=== PATIENT | female | born 1975 ===

== ENCOUNTER 2017-01-27 10:27 | Inpatient (IN) | payer OTHER ==
[2017-01-27] MEDS ORDERED: TUBERSOL ID ONE (10:53)
[2017-01-27] MEDS ORDERED: NICODERM PATCH TD SCH (11:00)
[2017-01-27 11:11] LABS: URINE SOURCE VOIDED
[2017-01-27 11:20] LABS: UR AMPHETAMINES QUAL NONE DETECTED (NONE DETECT); UR BARBITUATES QUAL NONE DETECTED (NONE DETECT); UR BENZODIAZEPIN QUAL PRESUMPTIVE POSITIVE (NONE DETECT); UR CANNABINOIDS QUAL NONE DETECTED (NONE DETECT); UR COCAINE QUAL PRESUMPTIVE POSITIVE (NONE DETECT); UR MDMA QUAL NONE DETECTED (NONE DETECT); UR METHADONE QUAL NONE DETECTED (NONE DETECT); UR METHAMPHETAMINE QUAL NONE DETECTED (NONE DETECT); UR OPIATES QUAL NONE DETECTED (NONE DETECT); UR OXYCODONE QUAL PRESUMPTIVE POSITIVE (NONE DETECT); UR PCP QUAL NONE DETECTED (NONE DETECT); UR TCA QUAL NONE DETECTED (NONE DETECT)
[2017-01-27 11:51] LABS: BILIRUBIN URINE NEGATIVE (NEGATIVE); BLOOD URINE 1+ (NEGATIVE); CLARITY CLEAR (CLEAR); COLOR YELLOW; GLUCOSE URINE NEGATIVE (NEGATIVE); LEUKOCYTES URINE 1+ (NEGATIVE); NITRITE URINE NEGATIVE (NEGATIVE); PH URINE 6.5; PROTEIN URINE TRACE mg/dL (NEGATIVE); UROBILINOGEN URINE NORMAL
[2017-01-27 11:54] LABS: URINE CULTURE PL NEEDED? YES; URINE EPITHELIAL CELLS >10 /HPF (<10); URINE RBC <10 /HPF (<10)
[2017-01-27 12:03] LABS: MANUAL DIFF NEEDED? NO
[2017-01-27 12:04] LABS: BASO% 0.7 % (0.0-0.8); EOS# 0.07 X1000 (0.0-0.7); EOS% 1.2 % (0.0-10.0); HEMATOCRIT 41.2 % (37.0-47.0); IMM GRAN# 0.01 X1000 (0.0-0.04); IMM GRAN% 0.2 % (0.0-0.5); LYMPH% 19.9 % (20.5-51.1); MCH 29.3 PG (27-31); MCV 86.2 FL (81-99); MONO# 0.45 X1000 (0.11-0.59); MONO% 7.5 % (1.7-9.3); MPV 9.8 FL (7.4-10.4); NEUT% 70.5 % (42.2-75.2); PLT 365 X1000 (130-400); RBC 4.78 XMIL (4.2-5.4)
[2017-01-27 12:23] LABS: INR 1.06 (0.86-1.15); PROTIME 14.1 Seconds (12.1-15.5)
[2017-01-27 12:24] LABS: AGAP 12; ALBUMIN 4.3 g/dL (3.5-5.0); ALKALINE PHOSPHATASE 101 U/L (32-104); AMYLASE 40 U/L (20-200); BUN 8 mg/dL (8-22); CALCIUM 9.6 mg/dL (8.8-10.2); CHLORIDE 105 mmol/L (98-107); COSMO 280; GOT 22 U/L (10-30); GPT 16 U/L (10-36); LIPASE 34 U/L (13-60); POTASSIUM 3.3 mmol/L (3.5-5.1); SODIUM 141 mmol/L (136-145); TCO2 24 mmol/L (25-35); TOTAL PROTEIN 7.5 g/dL (6.3-8.3)
[2017-01-27] MEDS ORDERED: FLUZONE QUAD 2016-2017 SYRINGE IM ONE (14:30)
[2017-01-27] MEDS ORDERED: BENTYL PO PRN (16:39)
[2017-01-27] MEDS ORDERED: TYLENOL PO PRN (16:39)
[2017-01-27] MEDS ORDERED: SALINE LOCK IV FLUID XX ONE (16:39)
[2017-01-27] MEDS ORDERED: DULCOLAX PR PRN (16:39)
[2017-01-27] MEDS ORDERED: MAALOX PLUS LIQUID PO PRN (16:39)
[2017-01-27] MEDS ORDERED: ZOFRAN IV PRN (16:39)
[2017-01-27] MEDS ORDERED: SINEMET 25/100 PO PRN (16:39)
[2017-01-27] MEDS ORDERED: SENOKOT PO PRN (16:39)
[2017-01-27] MEDS: ROBAXIN PO PRN ×2 (17:04→22:36)
[2017-01-27] MEDS: MOTRIN PO PRN (17:04)
[2017-01-27] MEDS: LIBRIUM PO PRN ×2 (17:04→22:36)
[2017-01-27] MEDS: PHENERGAN PO PRN ×2 (17:04→22:36)
[2017-01-27] MEDS: SUBOXONE 2 MG/0.5 MG SL SCH (17:05)
[2017-01-27 17:32] LABS: AMYLASE 37 U/L (20-200); LIPASE 41 U/L (13-60)
[2017-01-27 17:40] LABS: INR 1.1 (0.86-1.15); PROTIME 14.5 Seconds (12.1-15.5)
[2017-01-27 17:41] LABS: PTT PL 32.3 Seconds (22.6-43.9)
[2017-01-27] MEDS ORDERED: M.V.I.-12 10 ML, FOLIC ACID 1 MG, MAGNESIUM SULFATE 1 GM, THIAMINE 100 MG in NS 1,000 ML IV ONE (18:00)
[2017-01-27] MEDS: AMBIEN PO PRN (22:36)
[2017-01-28] MEDS: SUBOXONE 2 MG/0.5 MG SL SCH ×2 (04:50→16:20)
--- NOTE | 2017-01-28 08:42 | PROGRESS NOTE ---
DATE: 01/28/2017 SUBJECTIVE: The patient notes she is feeling a little bit better. She is still having myalgias, still did not sleep well, but overall feels a little bit better than initial admission. OBJECTIVE: Vital Signs: Reviewed. Temperature 98.0 degrees, pulse 60, respiratory rate 18, and BP 115/59. General: Patient is well developed, well nourished. Currently in no real respiratory distress. Speech is regular. Memory is intact. HEENT: Normocephalic, atraumatic. Neck: Supple. CV: Regular rate. Chest: Relatively clear. Abdomen: Soft. LABS: Reviewed. ASSESSMENT: 1. Nausea and vomiting. 2. Abdominal pain. 3. Myalgias. 4. Opiate abuse withdrawal with continued stabilization. PLAN: Will continue patient on her current care. Will add Toradol. Continue to wean Suboxone. Further orders as needed. Hopefully, she will continue to improve and will continue to desire further inpatient treatment at [facility].
[2017-01-28] MEDS: MULTI-VITAMIN PO SCH (09:22)
[2017-01-28] MEDS: FOLIC ACID PO SCH (09:22)
[2017-01-28] MEDS: VITAMIN B-1 PO SCH (09:22)
[2017-01-28] MEDS: NICODERM PATCH TD SCH (09:23)
[2017-01-28] MEDS: TORADOL IV PRN ×2 (09:28→22:49)
[2017-01-28] MEDS: PHENERGAN PO PRN ×3 (09:29→22:49)
[2017-01-28] MEDS: MOTRIN PO PRN (09:29)
[2017-01-28] MEDS: LIBRIUM PO PRN ×2 (09:29→16:24)
[2017-01-28] MEDS: IMODIUM PO PRN ×3 (09:29→22:49)
[2017-01-28] MEDS: AMBIEN PO PRN (22:49)
[2017-01-29] MEDS: SUBOXONE 2 MG/0.5 MG SL SCH ×2 (04:34→16:30)
--- NOTE | 2017-01-29 08:44 | PROGRESS NOTE ---
DATE: 01/29/2017 SUBJECTIVE: Patient states she is feeling a little bit better. Less muscle aches. Less nausea. OBJECTIVE: Vital signs: Temperature 98, pulse 69, respiratory rate 18, BP 121/76, saturation 100% on room air. General: Patient is well developed, well nourished. Currently in no real respiratory distress. She is awake, alert. Neck: Supple. CV: Regular rate. Chest: Relatively clear. Abdomen: Soft. Extremities: Moves all extremities. ASSESSMENT: 1. Urinary tract infection with gram-negative rods. Start on Cipro. 2. Myalgias. 3. Nausea and vomiting. 4. Abdominal pain, improved. 5. Opiate abuse, withdrawal, and stabilization. Continue use of Suboxone taper. PLAN: We will place patient on Cipro. We will continue to wean Suboxone. She has already talked to and scheduled outpatient treatment with [facility].
[2017-01-29] MEDS: FOLIC ACID PO SCH (09:11)
[2017-01-29] MEDS: VITAMIN B-1 PO SCH (09:11)
[2017-01-29] MEDS: NICODERM PATCH TD SCH (09:11)
[2017-01-29] MEDS: CIPRO PO SCH ×2 (09:11→20:48)
[2017-01-29] MEDS: MULTI-VITAMIN PO SCH (09:11)
[2017-01-29] MEDS: LIBRIUM PO PRN ×2 (09:41→20:48)
[2017-01-29] MEDS: TORADOL IV PRN ×2 (09:41→20:48)
[2017-01-29] MEDS: AMBIEN PO PRN (20:48)
[2017-01-29] MEDS: PHENERGAN PO PRN (20:48)
[2017-01-30] MEDS: SUBOXONE 2 MG/0.5 MG SL SCH (04:32)
[2017-01-30] MEDS: NICODERM PATCH TD SCH (08:32)
[2017-01-30] MEDS: CIPRO PO SCH (08:32)
[2017-01-30] MEDS: VITAMIN B-1 PO SCH (08:32)
[2017-01-30] MEDS: FOLIC ACID PO SCH (08:32)
[2017-01-30] MEDS: MULTI-VITAMIN PO SCH (08:32)
[2017-01-30] MEDS: LIBRIUM PO PRN (08:38)
[2017-01-30] MEDS: PHENERGAN PO PRN (08:38)
[2017-01-30] MEDS: TORADOL IV PRN (08:38)
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
[2017-01-30 12:28] VITALS: BP 141/81
== END 2017-01-30 12:30 | disposition home or self-care (01) | DRG 897 ==
LOC: P.DIRADM 10:27 → P.MEDSURG 10:34
PROVIDERS: ADMIT Family Medicine; ATTEND Family Medicine
PROC: HZ2ZZZZ Detoxification Services for Substance Abuse Treatment (ICD-10-PCS; principal; 2017-01-27)
DX: F11.23 Opioid dependence with withdrawal (principal); N39.0 Urinary tract infection, site not specified; B96.20 Unspecified Escherichia coli [E. coli] as the cause of diseases classified elsewhere; Z23 Encounter for immunization
CPT/HCPCS: 80053; 80305; 81001; 81025; 82150; 82948; 83690; 85025; 85610; 85730; 86580; 87077; 87088; 87186; G0480; J1885; J3411; J3475; J7030; Q2038; 80320